=== PATIENT | female | born 1985 | race Caucasian/White ===

== ENCOUNTER 2018-12-03 11:24 | Emergency (ER) | payer OTHER ==
[2018-12-03] MEDS ORDERED: KETOROLAC TROMETHAMINE INJ/PF 30 MG/1 ML SDV IV ONE (11:57)
[2018-12-03] MEDS ORDERED: ONDANSETRON HCL INJ/PF 4 MG/2 ML SDV IV ONE ×2 (11:57→17:29)
--- NOTE | 2018-12-03 11:59 | ER Document Report ---
ED General - General Chief Complaint: Flank Pain Stated Complaint: URINARY PROBLEMS Time Seen by Provider: 12/03/18 11:50 TRAVEL OUTSIDE OF THE [place] IN LAST 30 DAYS: No - Related Data Allergies/Adverse Reactions: amoxicillin Allergy (Verified 12/03/18 11:42) gabapentin Allergy (Verified 12/03/18 11:42) meropenem Allergy (Verified 12/03/18 11:42) moxifloxacin Allergy (Verified 12/03/18 11:42) Penicillins Allergy (Verified 12/03/18 11:42) phenytoin Allergy (Verified 12/03/18 11:42) sulfamethoxazole [From Bactrim] Allergy (Verified 12/03/18 11:42) trimethoprim [From Bactrim] Allergy (Verified 12/03/18 11:42) Past Medical History - Social History Smoking Status: Never Smoker Frequency of alcohol use: Occasional Drug Abuse: None Family History: Reviewed & Not Pertinent Patient has suicidal ideation: No Patient has homicidal ideation: No Pulmonary Medical History: Reports: Hx Asthma Renal/ Medical History: Reports: Hx Kidney Stones. Denies: Hx Peritoneal Dialysis Past Surgical History: Reports: Hx Urinary Tract Surgery - stent in ureters - Immunizations Hx Diphtheria, Pertussis, Tetanus Vaccination: Yes Review of Systems - Review of Systems -: Yes All other systems reviewed and negative Physical Exam - Vital signs Vitals: Temp Pulse Resp BP Pulse Ox 98.0 F 104 H 18 122/81 96 12/03/18 11:36 12/03/18 11:36 12/03/18 11:36 12/03/18 11:36 12/03/18 11:36 Course - Vital Signs Vital signs: Temp Pulse Resp BP Pulse Ox 98.0 F 104 H 18 122/81 96 12/03/18 11:36 12/03/18 11:36 12/03/18 11:36 12/03/18 11:36 12/03/18 11:36 - Laboratory Result Diagrams: 12/03/18 12:23 12/03/18 12:23 Laboratory results interpreted by me: 12/03/18 12:23 Glucose 61 L
[2018-12-03] MEDS: NORMAL SALINE 1000 ML 1,000 ML IV PRN ×2 (12:52→14:47)
[2018-12-03 13:03] LABS: ABSOLUTE BASOPHILS # (AUTO) 0.1 10^3/uL (0.0-0.2); ABSOLUTE EOSINOPHILS # (AUTO) 0.2 10^3/uL (0.0-0.6); ABSOLUTE LYMPHOCYTES (AUTO) 1.9 10^3/uL (0.5-4.7); ABSOLUTE MONOCYTES (AUTO) 0.8 10^3/uL (0.1-1.4); ABSOLUTE NEUT (AUTO) 6.1 10^3/uL (1.7-8.2); BASOPHILS % (AUTO) 0.8 % (0-2); EOSINOPHILS % (AUTO) 2.5 % (0-6); HEMATOCRIT 38.6 % (36.0-47.0); HEMOGLOBIN 13.2 g/dL (12.0-15.5); LYMPHOCYTES % (AUTO) 21.4 % (13-45); MEAN CORPUSCULAR HEMOGLOBIN 29.8 pg (27.0-33.4); MEAN CORPUSCULAR HGB CONC 34.2 g/dL (32.0-36.0); MEAN CORPUSCULAR VOLUME 87 fl (80-97); MONOCYTES % (AUTO) 8.3 % (3-13); PLATELET COUNT 371 10^3/uL (150-450); RED BLOOD COUNT 4.43 10^6/uL (3.72-5.28); RED CELL DISTRIBUTION WIDTH 13.4 % (11.5-14.0); TOTAL CELLS COUNTED % (AUTO) 100 %; WHITE BLOOD COUNT 9.1 10^3/uL (4.0-10.5)
[2018-12-03 13:15] LABS: ALANINE AMINOTRANSFERASE 20 U/L (9-52); ALBUMIN 4.5 g/dL (3.5-5.0); ALKALINE PHOSPHATASE 55 U/L (38-126); ANION GAP 9 (5-19); ASPARTATE AMINO TRANSFERASE 25 U/L (14-36); BILIRUBIN,DIRECT 0.2 mg/dL (0.0-0.4); BILIRUBIN,TOTAL 0.3 mg/dL (0.2-1.3); BLOOD UREA NITROGEN 12 mg/dL (7-20); CALCIUM 9.8 mg/dL (8.4-10.2); CARBON DIOXIDE 26 mmol/L (22-30); CHLORIDE 106 mmol/L (98-107); LIPASE 89.7 U/L (23-300); POTASSIUM 4.3 mmol/L (3.6-5.0); SODIUM 140.7 mmol/L (137-145); TOTAL PROTEIN 7.8 g/dL (6.3-8.2)
[2018-12-03 13:18] LABS: GLUCOSE 61 mg/dL (75-110)
[2018-12-03] MEDS ORDERED: DEXTROSE 40% GEL 15 GM TUBE PO ONE (13:20)
--- NOTE | 2018-12-03 13:22 | RADIOLOGY REPORT (SQ) ---
EXAM DESCRIPTION: CT LTD RENAL STONE PROTOCOL ON COMPLETED DATE/TIME: 12/03/2018 1:09 pm REASON FOR STUDY: Rt flank pain COMPARISON: None. TECHNIQUE: CT scan of the abdomen and pelvis performed without intravenous or oral contrast. Images reviewed with lung, soft tissue, and bone windows. Reconstructed coronal and sagittal MPR images revi ewed. All images stored on PACS. All CT scanners at this facility use dose modulation, iterative reconstruction, and/or weight based d osing when appropriate to reduce radiation dose to as low as reasonably achievable (ALARA). [facility]: Dose Right [facility]: CareDose [facility]: Dose Right [facility]: Teradose 4D [facility]: [employer] RADIATION DOSE: CT Rad equipment meets quality standard of care and radiation dose reduction techniq ues were employed. CTDIvol: 8.6 mGy. DLP: 469 mGy-cm.mGy. LIMITATIONS: None. FINDINGS: LOWER CHEST: No significant findings. No nodules or infiltrates. NON-CONTRASTED LIVER, SPLEEN, ADRENALS: Evaluation limited by lack of IV contrast. No identified sign ificant masses. PANCREAS: No masses. No peripancreatic inflammatory changes. GALLBLADDER: No identified stones by CT criteria. No inflammatory changes to suggest cholecystitis. RIGHT KIDNEY AND URETER: No suspicious masses. Assessment limited by lack of IV contrast. No signif icant calcifications. No hydronephrosis or hydroureter. LEFT KIDNEY AND URETER: No suspicious masses. Assessment limited by lack of IV contrast. No signifi cant calcifications. No hydronephrosis or hydroureter. AORTA AND RETROPERITONEUM: No aneurysm. No retroperitoneal masses or adenopathy. BOWEL AND PERITONEAL CAVITY: No obvious masses or inflammatory changes. No free fluid. APPENDIX: Normal. PELVIS, BLADDER, AND ABDOMINAL WALL:Small amount of anti dependent gas within the urinary bladder. M ildly distended urinary bladder. No focal wall thickening. Unremarkable adnexum. Tampon within the vaginal canal. No free fluid or lymphadenopathy. Small fat containing inguinal hernias, right grea ter than left. BONES: No acute bony abnormality. No suspicious osseous lesions. T12 bone island. OTHER: No other significant finding. IMPRESSION: 1. No evidence of nephrolithiasis or obstructive uropathy. 2. Small amount of gas within the urinary bladder. Findings may related to recent instrumentation o r infection. Recommend correlation with urinalysis. 3. No additional evidence of acute intra-abdominal/pelvic process. COMMENT: Quality ID # [id number]: Final reports with documentation of one or more dose reduction techniques (e.g., Automated exposure control, adjustment of the mA and/or kV according to patient size, use of iterative reconstruction technique) TECHNICAL DOCUMENTATION: JOB ID: [id number] [employer]- All Rights Reserved Reading location - IP/workstation name: [email or web address] [facility] ANSONSarah
--- NOTE | 2018-12-03 13:31 | ER Document Report ---
ED Medical Screen (RME) - General Chief Complaint: Flank Pain Stated Complaint: URINARY PROBLEMS Time Seen by Provider: 12/03/18 11:50 TRAVEL OUTSIDE OF THE [place] IN LAST 30 DAYS: No - HPI Notes: 12/03/18 Patient is a 32-year-old female with a history of kidney stones who presents emergency department complaining of sudden onset right flank pain that began last evening that radiates around into her groin with associated nausea and dysuria. Patient states that she is having trouble voiding. Patient states that the symptoms are all similar to previous kidney stones. She otherwise has had decreased p.o. intake. She is having normal bowel movements. No other vaginal discharge, or odor. She is currently on her menstrual cycle. Denies any headache, fever, URI, sore throat, chest pain, palpitations, syncope, cough, shortness of breath, wheeze, dyspnea, vomiting/diarrhea, urinary retention, dy suria, hematuria, loss of control of bowel or bladder, numbness/tingling, saddle anesthesia, muscle paralysis/weakness, or rash. I have treated and performed a rapid initial assessment of this patient. A comprehensive ED assessment and evaluation of the patient, analysis of test results and completion of medical decision making process will be conducted by additional ED providers. PHYSICAL EXAMINATION: GENERAL: Well-appearing, well-nourished and in no acute distress. LUNGS: Breath sounds clear to auscultation bilaterally and equal. No wheezes rales or rhonchi. HEART: Regular rate and rhythm without murmurs, rubs, gallops. ABDOMEN: Soft, nontender (difficult to asses in PIT), nondistended abdomen. No guarding, no rebound. No masses appreciated. Normal bowel sounds present. + right CVA tenderness. Musculoskeletal: FROM to passive/active. Strength 5+/5. PSYCH: Normal mood, normal affect. SKIN: Warm, Dry, normal turgor, no rashes or lesions noted. - Related Data Allergies/Adverse Reactions: amoxicillin Allergy (Verified 12/03/18 11:42) gabapentin Allergy (Verified 12/03/18 11:42) meropenem Allergy (Verified 12/03/18 11:42) moxifloxacin Allergy (Verified 12/03/18 11:42) Penicillins Allergy (Verified 12/03/18 11:42) phenytoin Allergy (Verified 12/03/18 11:42) sulfamethoxazole [From Bactrim] Allergy (Verified 12/03/18 11:42) trimethoprim [From Bactrim] Allergy (Verified 12/03/18 11:42) Past Medical History - Social History Frequency of alcohol use: Occasional Drug Abuse: None Pulmonary Medical History: Reports: Hx Asthma Renal/ Medical History: Reports: Hx Kidney Stones. Denies: Hx Peritoneal Dialysis Past Surgical History: Reports: Hx Urinary Tract Surgery - stent in ureters - Immunizations Hx Diphtheria, Pertussis, Tetanus Vaccination: Yes Physical Exam - Vital signs Vitals: Temp Pulse Resp BP Pulse Ox 98.0 F 104 H 18 122/81 96 12/03/18 11:36 12/03/18 11:36 12/03/18 11:36 12/03/18 11:36 12/03/18 11:36 Course - Vital Signs Vital signs: Temp Pulse Resp BP Pulse Ox 98.0 F 104 H 18 122/81 96 12/03/18 11:36 12/03/18 11:36 12/03/18 11:36 12/03/18 11:36 12/03/18 11:36 - Laboratory Result Diagrams: 12/03/18 12:23 12/03/18 12:23 Laboratory results interpreted by me: 12/03/18 12:23 Glucose 61 L
[2018-12-03] MEDS ORDERED: METOCLOPRAMIDE HCL INJ/PF 10 MG/2 ML SDV IV ONE (15:21)
[2018-12-03] MEDS ORDERED: MORPHINE SULFATE 10 MG/ML INJ IV ONE ×2 (15:21→17:29)
[2018-12-03 16:34] LABS: APPEARANCE,URINE CLEAR; BILIRUBIN,URINE NEGATIVE (NEGATIVE); COLOR,URINE YELLOW; GLUCOSE, URINE NEGATIVE (NEGATIVE); KETONES,URINE NEGATIVE (NEGATIVE); LEUKOCYTE ESTERASE,URINE NEGATIVE (NEGATIVE); NITRITE,URINE NEGATIVE (NEGATIVE); PROTEIN,URINE NEGATIVE (NEGATIVE); UROBILINOGEN,URINE NEGATIVE mg/dL (<2.0)
[2018-12-03] MEDS ORDERED: NITROFURANTOIN MONOHYD/M-CRYST 100 MG CAPSULE PO ONE (17:32)
--- NOTE | 2018-12-03 17:35 | ER Document Report ---
ED GI/ - General Chief Complaint: Flank Pain Stated Complaint: URINARY PROBLEMS Time Seen by Provider: 12/03/18 11:50 Primary Care Provider: CRICKET KAN MD [NO LOCAL MD] - Follow up as needed Notes: Patient is a 32-year-old female with history of kidney stones presenting to the emergency department with complaints of sudden onset right flank pain that began last night. She reports the pain radiates around into her right lower quadrant and has nausea and urinary frequency and dysuria. She states that although she feels like she has to go to the bathroom frequently she has been unable to produce much urine. Patient reports she has not had a normal void in at least 12 hours. She denies any abnormal vaginal discharge. She is on her menstrual cycle at this time. Patient denies any fevers. TRAVEL OUTSIDE OF THE [place] IN LAST 30 DAYS: No - Related Data Allergies/Adverse Reactions: amoxicillin Allergy (Verified 12/03/18 11:42) gabapentin Allergy (Verified 12/03/18 11:42) meropenem Allergy (Verified 12/03/18 11:42) moxifloxacin Allergy (Verified 12/03/18 11:42) Penicillins Allergy (Verified 12/03/18 11:42) phenytoin Allergy (Verified 12/03/18 11:42) sulfamethoxazole [From Bactrim] Allergy (Verified 12/03/18 11:42) trimethoprim [From Bactrim] Allergy (Verified 12/03/18 11:42) Past Medical History - General Information source: Patient - Social History Smoking Status: Never Smoker Frequency of alcohol use: Occasional Drug Abuse: None Family History: Reviewed & Not Pertinent Patient has suicidal ideation: No Patient has homicidal ideation: No Pulmonary Medical History: Reports: Hx Asthma Renal/ Medical History: Reports: Hx Kidney Stones. Denies: Hx Peritoneal Dialysis Past Surgical History: Reports: Hx Urinary Tract Surgery - stent in ureters - Immunizations Hx Diphtheria, Pertussis, Tetanus Vaccination: Yes Review of Systems - Review of Systems Constitutional: No symptoms reported EENT: No symptoms reported Cardiovascular: No symptoms reported Respiratory: No symptoms reported Gastrointestinal: No symptoms reported Genitourinary: Dysuria, Frequency, Flank pain, Retention Female Genitourinary: No symptoms reported Musculoskeletal: No symptoms reported Skin: No symptoms reported Hematologic/Lymphatic: No symptoms reported Neurological/Psychological: No symptoms reported Physical Exam - Vital signs Vitals: Temp Pulse Resp BP Pulse Ox 98.0 F 104 H 18 122/81 96 12/03/18 11:36 12/03/18 11:36 12/03/18 11:36 12/03/18 11:36 12/03/18 11:36 - Notes Notes: PHYSICAL EXAMINATION: GENERAL: Well-appearing, well-nourished and in no acute distress. HEAD: Atraumatic, normocephalic. EYES: Pupils equal round and reactive to light, extraocular movements intact, conjunctiva are normal. ENT: Nares patent, oropharynx clear without exudates. Moist mucous membranes. NECK: Normal range of motion, supple without lymphadenopathy LUNGS: Breath sounds clear to auscultation bilaterally and equal. No wheezes r ales or rhonchi. HEART: Regular rate and rhythm without murmurs ABDOMEN: Soft, nontender, nondistended abdomen. No guarding, no rebound. No masses appreciated. Female : Right CVA tenderness Musculoskeletal: Normal range of motion, no pitting or edema. No cyanosis. NEUROLOGICAL: Cranial nerves grossly intact. Normal speech, normal gait. Normal sensory, motor exams PSYCH: Normal mood, normal affect. SKIN: Warm, Dry, normal turgor, no rashes or lesions noted. Course - Re-evaluation Re-evalutation: Labs as recorded. CBC, CMP and urinalysis are unremarkable. Patient was sent for a CT to evaluate for renal stone which was negative. A Cadet catheter was inserted during patient's emergency department stay as patient reported that she had not voided in 12 hours. Upon insertion of the Cadet catheter patient had a pproximately 4 to 500 mL's of clear yellow fluid. Patient was encouraged to follow-up with urology. She will be started on oral antibiotics due to the fact that she has dysuria pending a urine culture. I did offer to leave the Cadet catheter in place due to patient's acute urinary retention and have patient follow-up with the urologist however patient declined this. Patient states that she is traveling by airplane tomorrow and she does not want to keep the catheter in. I instructed patient that there is a possibility she will have acute urinary retention again and if this occurs to please return to the emergency department for placement of a catheter. Patient verbalized understanding and agreement with plan. - Vital Signs Vital signs: Temp Pulse Resp BP Pulse Ox 97.9 F 89 18 107/67 97 12/03/18 18:25 12/03/18 18:25 12/03/18 18:25 12/03/18 18:25 12/03/18 18:25 - Laboratory Result Diagrams: 12/03/18 12:23 12/03/18 12:23 Laboratory results interpreted by me: 12/03/18 12:23 Glucose 61 L Discharge - Discharge Clinical Impression: Flank pain, Cystitis Condition: Stable Disposition: HOME, SELF-CARE Additional Instructions: Please take antibiotics as prescribed. A urine culture is pending. Please use ibuprofen 600 mg every 6 hours for pain. Take all prescribed medications as directed. Please follow-up with a urologist. If you develop acute urinary retention, fever, persistent vomiting or any other symptom that is concerning to you please return to the emergency department at once. Prescriptions: Ondansetron [Zofran Odt 4 mg Tablet] 1 - 2 tab PO Q4HP PRN #15 tab.rapdis PRN Reason: Nitrofurantoin/Nitrofuran Mac [Macrobid 100 mg Capsule] 1 tab PO BID #14 capsule Forms: Return to Work Referrals: CRICKET KAN MD [NO LOCAL MD] - Follow up as needed
[2018-12-03] MEDS ORDERED: HYDROCODONE/ACETAMINOPHEN 5-325 MG (6 TAB/ER DISP) PO PRN (17:38)
[2018-12-03 18:31] VITALS: BP 107/67
== END 2018-12-03 18:30 | disposition home or self-care (01) ==
LOC: ER 11:24
DX: N30.90 Cystitis, unspecified without hematuria (principal); R10.9 Unspecified abdominal pain; Z87.442 Personal history of urinary calculi; Z88.0 Allergy status to penicillin; Z88.3 Allergy status to other anti-infective agents
CPT/HCPCS: 96376; 99284; 96361; 96374; 96375; 36415; 87086; 83690; 85025; 81025; 80053; 81001; 76380; J1885; J2765; J2270; J2405; J7030; J8499

== ENCOUNTER 2019-07-06 09:56 | Emergency (ER) | payer OTHER ==
[2019-07-06] MEDS ORDERED: ONDANSETRON HCL INJ/PF 4 MG/2 ML SDV IV ONE (10:42)
[2019-07-06] MEDS ORDERED: KETOROLAC TROMETHAMINE INJ/PF 30 MG/1 ML SDV IV ONE (10:42)
--- NOTE | 2019-07-06 10:44 | ER Document Report ---
ED Medical Screen (RME) - General Chief Complaint: Abdominal Pain Stated Complaint: RIGHT FLANK PAIN,VOMITING Time Seen by Provider: 07/06/19 10:32 Mode of Arrival: Ambulatory Information source: Patient Notes: This 33-year-old female with history of kidney stones presents to the emergency department with reports that she was on her way to school when she had sudden onset of pain to her right lower quad right pelvic area. Reports she is been vomiting. Patient reports the pain decreases when she holds pressure. Denies fever. Denies reports she has not been sexually active. She reports yesterday she was fine no problems. I have greeted and performed a rapid initial assessment of this patient. A comprehensive ED assessment and evaluation of the patient, analysis of test results and completion of the medical decision making process will be conducted by additional ED providers. Dictation of this chart was performed using voice recognition software; therefore, there may be some unintended grammatical errors. TRAVEL OUTSIDE OF THE [place] IN LAST 30 DAYS: No - Related Data Allergies/Adverse Reactions: amoxicillin Allergy (Verified 12/03/18 11:42) gabapentin Allergy (Verified 12/03/18 11:42) meropenem Allergy (Verified 12/03/18 11:42) moxifloxacin Allergy (Verified 12/03/18 11:42) Penicillins Allergy (Verified 12/03/18 11:42) phenytoin Allergy (Verified 12/03/18 11:42) sulfamethoxazole [From Bactrim] Allergy (Verified 12/03/18 11:42) trimethoprim [From Bactrim] Allergy (Verified 12/03/18 11:42) Past Medical History - Social History Frequency of alcohol use: None Drug Abuse: None Pulmonary Medical History: Reports: Hx Asthma Renal/ Medical History: Reports: Hx Kidney Stones. Denies: Hx Peritoneal Dialysis Past Surgical History: Reports: Hx Urinary Tract Surgery - stent in ureters - Immunizations Hx Diphtheria, Pertussis, Tetanus Vaccination: Yes Physical Exam - Vital signs Vitals: Temp Pulse BP Pulse Ox 97.6 F 115 H 101/63 95 07/06/19 10:12 07/06/19 10:12 07/06/19 10:12 07/06/19 10:12 Course - Vital Signs Vital signs: Temp Pulse Resp BP Pulse Ox 97.6 F 115 H 101/63 95 07/06/19 10:12 07/06/19 10:12 07/06/19 10:12 07/06/19 10:12
[2019-07-06 11:43] LABS: ABSOLUTE BASOPHILS # (AUTO) 0.1 10^3/uL (0.0-0.2); ABSOLUTE LYMPHOCYTES (AUTO) 1.4 10^3/uL (0.5-4.7); ABSOLUTE MONOCYTES (AUTO) 0.8 10^3/uL (0.1-1.4); ABSOLUTE NEUT (AUTO) 5.6 10^3/uL (1.7-8.2); EOSINOPHILS % (AUTO) 10.8 % (0-6); HEMATOCRIT 40.7 % (36.0-47.0); HEMOGLOBIN 13.4 g/dL (12.0-15.5); LYMPHOCYTES % (AUTO) 15.5 % (13-45); MEAN CORPUSCULAR HEMOGLOBIN 26.9 pg (27.0-33.4); MEAN CORPUSCULAR HGB CONC 33.1 g/dL (32.0-36.0); MEAN CORPUSCULAR VOLUME 81 fl (80-97); PLATELET COUNT 346 10^3/uL (150-450); RED CELL DISTRIBUTION WIDTH 14.4 % (11.5-14.0); SEGMENTED NEUTROPHILS % (AUTO) 63.7 % (42-78); TOTAL CELLS COUNTED % (AUTO) 100 %; WHITE BLOOD COUNT 8.8 10^3/uL (4.0-10.5)
[2019-07-06 11:54] LABS: ALBUMIN 4.5 g/dL (3.5-5.0); ALKALINE PHOSPHATASE 84 U/L (38-126); ANION GAP 11 (5-19); ASPARTATE AMINO TRANSFERASE 23 U/L (14-36); BILIRUBIN,DIRECT 0.3 mg/dL (0.0-0.4); BILIRUBIN,TOTAL 0.3 mg/dL (0.2-1.3); BLOOD UREA NITROGEN 11 mg/dL (7-20); CALCIUM 9.2 mg/dL (8.4-10.2); CARBON DIOXIDE 24 mmol/L (22-30); CHLORIDE 102 mmol/L (98-107); GLUCOSE 89 mg/dL (75-110); POTASSIUM 4.4 mmol/L (3.6-5.0)
[2019-07-06] MEDS ORDERED: MORPHINE SULFATE 10 MG/ML INJ IV ONE (12:06)
--- NOTE | 2019-07-06 12:11 | ER Document Report ---
ED General - General Chief Complaint: Abdominal Pain Stated Complaint: RIGHT FLANK PAIN,VOMITING Time Seen by Provider: 07/06/19 10:32 Mode of Arrival: Ambulatory TRAVEL OUTSIDE OF THE [place] IN LAST 30 DAYS: No - HPI Notes: Patient is a 33-year-old female with no significant past medical history aside from previous kidney stones who presents complaining of right lower quadrant a bdominal pain that is described as moderate to severe and started this morning with nausea and vomiting. Patient states that the pain does not radiate. Patient states that pressure in the area makes the pain worse. She has not had any vaginal discharge, odor, or bleeding. She has not noticed any changes in urination or bowel movements. Patient states that this does not mimic previous kidney stones. No surgical history to her abdomen. Denies . Denies any headache, fever, neck pain, URI, sore throat, chest pain, palpitations, syncope, cough, shortness of breath, wheeze, dyspnea, diarrhea, urinary retention, dysuria, hematuria, back pain, or rash. - Related Data Allergies/Adverse Reactions: amoxicillin Allergy (Verified 12/03/18 11:42) gabapentin Allergy (Verified 12/03/18 11:42) meropenem Allergy (Verified 12/03/18 11:42) moxifloxacin Allergy (Verified 12/03/18 11:42) Penicillins Allergy (Verified 12/03/18 11:42) phenytoin Allergy (Verified 12/03/18 11:42) sulfamethoxazole [From Bactrim] Allergy (Verified 12/03/18 11:42) trimethoprim [From Bactrim] Allergy (Verified 12/03/18 11:42) Past Medical History - General Information source: Patient - Social History Smoking Status: Unknown if Ever Smoked Frequency of alcohol use: None Drug Abuse: None Family History: Reviewed & Not Pertinent Patient has suicidal ideation: No Patient has homicidal ideation: No Pulmonary Medical History: Reports: Hx Asthma Renal/ Medical History: Reports: Hx Kidney Stones. Denies: Hx Peritoneal Dialysis Past Surgical History: Reports: Hx Urinary Tract Surgery - stent in ureters - Immunizations Hx Diphtheria, Pertussis, Tetanus Vaccination: Yes Review of Systems - Review of Systems -: Yes All other systems reviewed and negative Physical Exam - Vital signs Vitals: Temp Pulse BP Pulse Ox 97.6 F 115 H 101/63 95 07/06/19 10:12 07/06/19 10:12 07/06/19 10:12 07/06/19 10:12 - Notes Notes: PHYSICAL EXAMINATION: GENERAL: well-nourished and in no acute resp distress. Pt does appear u ncomfortable and holding her RLQ. HEAD: Atraumatic, normocephalic. EYES: Pupils equal round and reactive to light, extraocular movements intact, sclera anicteric, conjunctiva are normal. ENT: Nares patent and without discharge. oropharynx clear without exudates. No tonsilar hypertrophy or erythema. Moist mucous membranes. NECK: Normal range of motion, supple without lymphadenopathy LUNGS: Breath sounds clear to auscultation bilaterally and equal. No wheezes rales or rhonchi. HEART: Regular rate and rhythm without murmurs, rubs, gallops. ABDOMEN: Soft, nondistended abdomen. No guarding, no rebound. Normal bowel sounds present. No CVA tenderness bilaterally. + tenderness to [place] > Lower pelvic area. Musculoskeletal: FROM to passive/active. Strength 5+/5. Extremities: No cyanosis, clubbing, or edema b/l. Peripheral pulses 2+. Capillary refill less than 3 seconds. NEUROLOGICAL: Normal speech, normal gait. PSYCH: Normal mood, normal affect. SKIN: Warm, Dry, normal turgor, no rashes or lesions noted. Course - Re-evaluation Re-evalutation: 07/06/19 13:49 Patient is an afebrile, well-hydrated, 33-year-old female who presents to the ED with RLQ abd pain and noted ovarian cysts. Vitals are acceptable without any significant tachycardia, tachypnea, or hypoxia. PE is otherwise unremarkable. Labs acceptable. Patient is nontoxic-appearing is tolerating p.o. without any difficulties. See imaging including CT scan and TVUS. No other labs or imaging warranted at this time based on H&P. Low suspicion/risk for acute appendicitis, bowel obstruction, acute cholecystitis, acute cholangitis, perforated diverticulitis, incarcerated hernia, pancreatitis, perforated ulcer, peritonitis , sepsis, pelvic inflammatory disease, ectopic , tubo-ovarian abscess, ovarian torsion, or other systemic emergent condition at this time. Patient is aware that her condition can change from initial presentation and she needs to monitor symptoms closely and seek medical attention if any acute changes. I will send her home with prescription for motrin. Conservative measures otherwise for symptoms. Recheck with your PCM/OBGYN in 3-5 days. Return to the ED with any worsening/concerning symptoms otherwise as reviewed in discharge. Patient is in agreement. - Vital Signs Vital signs: Temp Pulse Resp BP Pulse Ox 97.6 F 115 H 101/63 95 07/06/19 10:12 07/06/19 10:12 07/06/19 10:12 07/06/19 10:12 - Laboratory Result Diagrams: 07/06/19 10:50 07/06/19 10:50 Laboratory results interpreted by me: 07/06/19 07/06/19 07/06/19 10:50 10:50 12:47 MCH 26.9 L RDW 14.4 H Eos % (Auto) 10.8 H Absolute Eos (auto) 1.0 H Sodium 136.7 L Urine Protein 30 H Urine Blood SMALL H Ur Leukocyte Esterase SMALL H Discharge - Discharge Clinical Impression: Right lower quadrant abdominal pain, Bilateral ovarian cysts Condition: Stable Disposition: HOME, SELF-CARE Instructions: Ovarian Cyst ([facility]), Abdominal Pain ([facility]) Additional Instructions: Maintain adequate fluid and food intake [place] diet ([employer] Bananas, rice, apples, toast, etc Zofran as needed tylenol/motrin if needed Monitor for any worsening symptoms Make sure you are staying hydrated enough to urinate and have normal BM's Recheck with your PCM in 3-5 days Schedule appointment with [facility]OL[facility] PROFESSIONAL for further evaluation and management Return to the ED with any worsening symptoms and/or development of fever, headache, chest pain, palpitations, syncope, shortness of breath, trouble b reathing, abdominal pain, n/v/d, blood in stool/urine, weakness, or other worsening symptoms that are concerning to you. Prescriptions: Ibuprofen [Motrin 800 mg Tablet] 800 mg PO Q8H PRN #15 tab PRN Reason: Ondansetron [Zofran Odt 4 mg Tablet] 1 - 2 tab PO Q4H PRN #15 tab.rapdis PRN Reason: For Nausea/Vomiting Referrals: LUCRETIA RICHARDS MD [ACTIVE STAFF] - Follow up as needed [facility] [Provider Group] - Follow up as needed
--- NOTE | 2019-07-06 12:35 | RADIOLOGY REPORT (SQ) ---
EXAM DESCRIPTION: U/S NON OB PEL TV W/DOPPLER COMPLETED DATE/TIME: 07/06/2019 12:03 pm REASON FOR STUDY: right side pelvic pain COMPARISON: None. TECHNIQUE: Dynamic and static grayscale images acquired of the pelvis via transvaginal approach and recorded on PACS. Additional selected color Doppler and spectral images recorded. LIMITATIONS: None. FINDINGS: UTERUS: Contour normal. No mass. ENDOMETRIAL STRIPE: No focal or generalized thickening. No masses. CERVIX: 2.2 cm. No nabothian cysts. RIGHT OVARY AND DOPPLER: Normal size. No worrisome masses. There is complex area measuring 15 mm jeffrey t is partially cystic and may comprise a cluster of small cysts. Normal arterial vascular flow witho ut evidence for torsion. LEFT OVARY AND DOPPLER: Normal size. No worrisome masses. There is a 2.3 cm cyst. There is a 16 mm complex area. Normal arterial vascular flow without evidence for torsion. FREE FLUID: There is some free fluid in the posterior cul-de-sac and in the right adnexa. OTHER: No other significant finding. MEASUREMENTS: UTERUS: 7.5 x 4.6 x 3.7 cm. ENDOMETRIAL STRIPE: 1.3 cm. RIGHT OVARY: 2.4 x 2.4 x 1.8 cm. LEFT OVARY: 4.4 x 2.8 x 2.1 cm. IMPRESSION: There are complex areas in each ovary that may represent involuting cysts. Recommend so nographic follow-up in 6 to 12 weeks. TECHNICAL DOCUMENTATION: JOB ID: [id number] [employer]- All Rights Reserved Reading location - IP/workstation name: [email or web address]
[2019-07-06 13:08] LABS: APPEARANCE,URINE SLIGHTLY-CLOUDY; BILIRUBIN,URINE NEGATIVE (NEGATIVE); COLOR,URINE YELLOW; GLUCOSE, URINE NEGATIVE (NEGATIVE); KETONES,URINE NEGATIVE (NEGATIVE); LEUKOCYTE ESTERASE,URINE SMALL (NEGATIVE); NITRITE,URINE NEGATIVE (NEGATIVE); PROTEIN,URINE 30 mg/dL (NEGATIVE); URINE SPECIFIC GRAVITY 1.025; UROBILINOGEN,URINE NEGATIVE mg/dL (<2.0)
--- NOTE | 2019-07-06 13:29 | RADIOLOGY REPORT (SQ) ---
EXAM DESCRIPTION: CT ABD/PELVIS WITH IV ONLY COMPLETED DATE/TIME: 07/06/2019 12:59 pm REASON FOR STUDY: RLQ pain COMPARISON: None. TECHNIQUE: CT scan of the abdomen and pelvis performed using helical scanning technique with dynamic intravenous contrast injection. No oral contrast. Images reviewed with lung, soft tissue, and bone windows. Reconstructed coronal and sagittal MPR images reviewed. Delayed images for evaluation of the urinary system also acquired. All images stored on PACS. All CT scanners at this facility use dose modulation, iterative reconstruction, and/or weight based d osing when appropriate to reduce radiation dose to as low as reasonably achievable (ALARA). [facility]: Dose Right [facility]: CareDose [facility]: Dose Right [facility]: Teradose 4D [facility]: Quartzy CONTRAST TYPE AND DOSE: contrast/concentration: Isovue 350.00 mg/ml; Total Contrast Delivered: 74.0 ml; Total Saline Delivered: 27.9 ml RENAL FUNCTION: BUN 11 creatinine 0.78 RADIATION DOSE: CT Rad equipment meets quality standard of care and radiation dose reduction techniq ues were employed. CTDIvol: 5.8 - 7.8 mGy. DLP: 1200 mGy-cm.. LIMITATIONS: None. FINDINGS: LOWER CHEST: No significant findings. No nodules or infiltrates. LIVER: There is a small low-density lesion in the right lobe of the liver on image 20, possible heman gioma. SPLEEN: Normal size. No focal lesions. PANCREAS: No masses. No significant calcifications. No adjacent inflammation or peripancreatic fluid collections. Pancreatic duct not dilated. GALLBLADDER: No identified stones by CT criteria. No inflammatory changes to suggest cholecystitis. ADRENAL GLANDS: No significant masses or asymmetry. RIGHT KIDNEY AND URETER: No solid masses. No significant calcifications. No hydronephrosis or hyd roureter. LEFT KIDNEY AND URETER: No solid masses. No significant calcifications. No hydronephrosis or hydr oureter. AORTA AND VESSELS: No aneurysm. No dissection. Renal arteries, SMA, celiac without stenosis. RETROPERITONEUM: No retroperitoneal adenopathy, hemorrhage or masses. BOWEL AND PERITONEAL CAVITY: No masses or inflammatory changes. No free fluid or peritoneal masses. APPENDIX: Normal. PELVIS: Small amount of free fluid in the pelvis. 22 mm left ovarian cyst. 12 mm right ovarian cyst . ABDOMINAL WALL: No masses. No hernias. BONES: No significant or acute findings. OTHER: No other significant finding. IMPRESSION: 1. Small ovarian cysts are almost certainly benign. No additional imaging is required for these. 2. Small amount of free fluid in the pelvis. 3. Likely small hemangioma in the liver. TECHNICAL DOCUMENTATION: JOB ID: [id number] Quality ID # [id number]: Final reports with documentation of one or more dose reduction techniques (e.g., Au tomated exposure control, adjustment of the mA and/or kV according to patient size, use of iterative reconstruction technique) 2010 [employer]- All Rights Reserved Reading location - IP/workstation name: [email or web address]
[2019-07-06 14:09] VITALS: BP 95/55
== END 2019-07-06 14:24 | disposition home or self-care (01) ==
LOC: ER 09:56
DX: N83.202 Unspecified ovarian cyst, left side (principal); N83.201 Unspecified ovarian cyst, right side; R10.31 Right lower quadrant pain; R11.10 Vomiting, unspecified; Z87.442 Personal history of urinary calculi; Z88.0 Allergy status to penicillin; Z88.3 Allergy status to other anti-infective agents
CPT/HCPCS: 36415; 84703; 85025; 80053; 81001; 76830; 93976; 74177; J1885; J2270; J2405; 87086; 96374; 99284

== ENCOUNTER 2019-10-05 17:32 | Emergency (ER) | payer OTHER ==
[2019-10-05] MEDS ORDERED: KETOROLAC TROMETHAMINE 60 MG/2 ML SDV IM ONE (18:34)
--- NOTE | 2019-10-05 18:39 | ER Document Report ---
ED Medical Screen (RME) - General Chief Complaint: Flank Pain Stated Complaint: RIGHT FLANK PAIN,NAUSEA Time Seen by Provider: 10/05/19 18:33 Mode of Arrival: Ambulatory Information source: Patient Notes: pt presents with right flank pain that started today at 1330. Has history of pyelonephritis and kidney stones,.Reports hx of kidney stent placement. Denies pain with void, denies f/n/V. Went to urgent care and they sent her here. Denies . I have greeted and performed a rapid initial assessment of this patient. A comprehensive ED assessment and evaluation of the patient, analysis of test results and completion of the medical decision making process will be conducted by additional ED providers. TRAVEL OUTSIDE OF THE [place] IN LAST 30 DAYS: No - Related Data Allergies/Adverse Reactions: amoxicillin Allergy (Verified 12/03/18 11:42) gabapentin Allergy (Verified 12/03/18 11:42) meropenem Allergy (Verified 12/03/18 11:42) moxifloxacin Allergy (Verified 12/03/18 11:42) Penicillins Allergy (Verified 12/03/18 11:42) phenytoin Allergy (Verified 12/03/18 11:42) sulfamethoxazole [From Bactrim] Allergy (Verified 12/03/18 11:42) trimethoprim [From Bactrim] Allergy (Verified 12/03/18 11:42) Past Medical History Pulmonary Medical History: Reports: Hx Asthma Renal/ Medical History: Reports: Hx Kidney Stones. Denies: Hx Peritoneal Dialysis Past Surgical History: Reports: Hx Urinary Tract Surgery - stent in ureters - Immunizations Hx Diphtheria, Pertussis, Tetanus Vaccination: Yes Physical Exam - Vital signs Vitals: Temp Pulse Resp BP Pulse Ox 97.9 F 109 H 20 118/75 99 10/05/19 17:58 10/05/19 17:58 10/05/19 17:58 10/05/19 17:58 10/05/19 17:58 Course - Vital Signs Vital signs: Temp Pulse Resp BP Pulse Ox 97.9 F 109 H 20 118/75 99 10/05/19 17:58 10/05/19 17:58 10/05/19 17:58 10/05/19 17:58 10/05/19 17:58
[2019-10-05 19:33] LABS: ABSOLUTE BASOPHILS # (AUTO) 0.1 10^3/uL (0.0-0.2); ABSOLUTE EOSINOPHILS # (AUTO) 1.9 10^3/uL (0.0-0.6); ABSOLUTE LYMPHOCYTES (AUTO) 2.4 10^3/uL (0.5-4.7); ABSOLUTE MONOCYTES (AUTO) 0.8 10^3/uL (0.1-1.4); ABSOLUTE NEUT (AUTO) 3.9 10^3/uL (1.7-8.2); BASOPHILS % (AUTO) 0.8 % (0-2); EOSINOPHILS % (AUTO) 21.2 % (0-6); HEMOGLOBIN 13.7 g/dL (12.0-15.5); LYMPHOCYTES % (AUTO) 26.1 % (13-45); MEAN CORPUSCULAR HGB CONC 32.7 g/dL (32.0-36.0); MEAN CORPUSCULAR VOLUME 82 fl (80-97); MONOCYTES % (AUTO) 8.5 % (3-13); PLATELET COUNT 386 10^3/uL (150-450); RED BLOOD COUNT 5.09 10^6/uL (3.72-5.28); RED CELL DISTRIBUTION WIDTH 14.5 % (11.5-14.0); SEGMENTED NEUTROPHILS % (AUTO) 43.4 % (42-78); TOTAL CELLS COUNTED % (AUTO) 100 %; WHITE BLOOD COUNT 9.1 10^3/uL (4.0-10.5)
[2019-10-05 19:39] LABS: APPEARANCE,URINE CLEAR; BILIRUBIN,URINE NEGATIVE (NEGATIVE); COLOR,URINE YELLOW; GLUCOSE, URINE NEGATIVE (NEGATIVE); KETONES,URINE NEGATIVE (NEGATIVE); LEUKOCYTE ESTERASE,URINE TRACE (NEGATIVE); NITRITE,URINE NEGATIVE (NEGATIVE); PROTEIN,URINE NEGATIVE (NEGATIVE); URINE SPECIFIC GRAVITY 1.018; UROBILINOGEN,URINE NEGATIVE mg/dL (<2.0)
--- NOTE | 2019-10-05 19:39 | RADIOLOGY REPORT (SQ) ---
EXAM DESCRIPTION: U/S RETROPERITON LTD COMPLETED DATE/TIME: 10/05/2019 7:23 pm REASON FOR STUDY: flank pain hx kidney stones and pyelo COMPARISON: None. TECHNIQUE: Dynamic and static grayscale images acquired of the kidneys and bladder and recorded on P ACS. Additional selected color Doppler and spectral images recorded. LIMITATIONS: None. FINDINGS: RIGHT KIDNEY: Normal size, 9.5 cm. Normal echogenicity. No solid or suspicious masses . No hydronephrosis. Echogenic foci are seen in the middle calices. LEFT KIDNEY: Normal size, 9.9 cm. Normal echogenicity. No solid or suspicious masses. No hydro nephrosis. No calcifications. BLADDER: Bladder was empty. OTHER FINDINGS: No other significant finding. IMPRESSION: There appear to be middle calyceal calculi in the right kidney. There is no hydronephro sis on either side. TECHNICAL DOCUMENTATION: JOB ID: [id number] 2010 [employer]- All Rights Reserved Reading location - IP/workstation name: [email or web address]
[2019-10-05 20:03] VITALS: BP 120/78
[2019-10-05 20:03] LABS: ALBUMIN 4.4 g/dL (3.5-5.0); ALKALINE PHOSPHATASE 72 U/L (38-126); ANION GAP 10 (5-19); ASPARTATE AMINO TRANSFERASE 23 U/L (14-36); BILIRUBIN,TOTAL 0.2 mg/dL (0.2-1.3); BLOOD UREA NITROGEN 12 mg/dL (7-20); CALCIUM 9.4 mg/dL (8.4-10.2); CARBON DIOXIDE 26 mmol/L (22-30); CHLORIDE 102 mmol/L (98-107); GLUCOSE 77 mg/dL (75-110); TOTAL PROTEIN 7.5 g/dL (6.3-8.2)
[2019-10-05] MEDS ORDERED: ONDANSETRON HCL INJ/PF 4 MG/2 ML SDV IV ONE (21:06)
[2019-10-05] MEDS ORDERED: MORPHINE SULFATE 10 MG/ML INJ IV ONE ×2 (21:06→22:40)
[2019-10-05] MEDS ORDERED: NORMAL SALINE 1000 ML 1,000 ML IV ONE (21:06)
--- NOTE | 2019-10-05 21:07 | ER Document Report ---
ED GI/ - General Chief Complaint: Flank Pain Stated Complaint: RIGHT FLANK PAIN,NAUSEA Time Seen by Provider: 10/05/19 18:33 Mode of Arrival: Ambulatory Notes: CHIEF COMPLAINT: Right flank pain today HPI: 33-year-old female with kidney stone history presenting for sudden onset of right flank pain with nausea today. One episode of vomiting. No fever. Pain began in the right posterior flank that radiates around into the right lower quadrant. Patient states that she does not recall the name of her urologist cu rrently but has had a stent in the past ROS: See HPI - all other systems were reviewed and are otherwise negative Constitutional: no fever Eyes: no drainage, no blurred vision ENT: no runny nose, no sore throat Cardiovascular: no chest pain Resp: no SOB, no cough GI: + vomiting, no diarrhea, + Abdominal pain : no dysuria Integumentary: no rash Allergy: no hives Musculoskeletal: no extremity pain or swelling Neurological: no numbness/tingling, no weakness MEDICATIONS: I agree with the patient medications as charted by the RN. ALLERGIES: I agree with the allergies as charted by the RN. PAST MEDICAL HISTORY/PAST SURGICAL HISTORY: Reviewed and agree as charted by RN. SOCIAL HISTORY: Reviewed and agree as charted by RN. FAMILY HISTORY: No significant familial comorbid conditions directly related to patient complaint EXAM: Reviewed vital signs as charted by RN. CONSTITUTIONAL: Alert and oriented and responds appropriately to questions. Well-appearing; well-nourished, moderate distress secondary to discomfort HEAD: Normocephalic; atraumatic EYES: PERRL; Conjunctivae clear, sclerae non-icteric ENT: normal nose; no rhinorrhea; moist mucous membranes; pharynx without lesions noted, no uvula edema or deviation, no tonsillar hypertrophy, phonation normal NECK: Supple without meningismus; non-tender; no cervical lymphadenopathy, no masses CARD: RRR; no murmurs, no clicks, no rubs, no gallops; symmetric distal pulses RESP: Normal chest excursion without splinting or tachypnea; breath sounds clear and equal bilaterally; no wheezes, no rhonchi, no rales, pulse oximetry 100% on room air not hypoxic ABD/GI: Normal bowel sounds; non-distended; soft, mild tenderness to the right flank on palpation, no rebound, no guarding; no palpable organomegaly or masses. BACK: The back appears normal and is non-tender to palpation, there is no CVA tenderness EXT: Normal ROM in all joints; non-tender to palpation; no cyanosis, no effusions, no edema SKIN: Normal color for age and race; warm; dry; good turgor; no acute lesions noted NEURO: Moves all extremities equally; Motor and sensory function intact PSYCH: The patient's mood and manner are appropriate. Grooming and personal hygiene are appropriate. MDM: 33-year-old female with a kidney stone history presenting with right flank pain onset today. There is an initial delay in my evaluation of the patient as she had been taken off "to be seen status" and we were not aware that the patient still needed evaluation. I did go immediately and evaluate the patient once I was aware of this. Initial lab work does not show acute emergent abnormalities through the triage process. Renal ultrasound shows possible calcification suggesting kidney stones but no hydronephrosis but patient is still moderately uncomfortable and has had have a stent previously for prior kidney stones for obstruction reason so will obtain CT imaging to look for an obstructive stone. Patient had a CT in June 2019 that did not show any marvin cifications in the kidneys TRAVEL OUTSIDE OF THE [place] IN LAST 30 DAYS: No - Related Data Allergies/Adverse Reactions: amoxicillin Allergy (Verified 12/03/18 11:42) gabapentin Allergy (Verified 12/03/18 11:42) meropenem Allergy (Verified 12/03/18 11:42) moxifloxacin Allergy (Verified 12/03/18 11:42) Penicillins Allergy (Verified 12/03/18 11:42) phenytoin Allergy (Verified 12/03/18 11:42) sulfamethoxazole [From Bactrim] Allergy (Verified 12/03/18 11:42) trimethoprim [From Bactrim] Allergy (Verified 12/03/18 11:42) Home Medications: Zyrtes. Buspirone. Cymbalta. Adderall Past Medical History - General Information source: Patient - Social History Smoking Status: Never Smoker Frequency of alcohol use: Occasional Drug Abuse: None Family History: Reviewed & Not Pertinent Patient has suicidal ideation: No Patient has homicidal ideation: No Pulmonary Medical History: Reports: Hx Asthma Renal/ Medical History: Reports: Hx Kidney Stones. Denies: Hx Peritoneal Dialysis Past Surgical History: Reports: Hx Urinary Tract Surgery - stent in ureters - Immunizations Hx Diphtheria, Pertussis, Tetanus Vaccination: Yes Physical Exam - Vital signs Vitals: Temp Pulse Resp BP Pulse Ox 97.9 F 109 H 20 118/75 99 10/05/19 17:58 10/05/19 17:58 10/05/19 17:58 10/05/19 17:58 10/05/19 17:58 Course - Re-evaluation Re-evalutation: 10/05/19 22:37 I discussed evaluation at length with the patient and her mother. Patient CT imaging does not suggest a obstructing stone, there is no hydronephrosis. This was also visualized on ultrasound. She does have several intrarenal calculi. Can we rule out a small nonobstructing stone not 100% and I did communicate this at length with the patient and her mother. The patient's mother is frustrated because they have been here for several hours without a definitive answer for why they are here. We did review all of the CT ultrasound and lab findings. I have low suspicion for pyelonephritis. Patient had sudden onset of pain today suggesting passage of a kidney stone. I will treat patient's pain and refer her back to Dr. Lu her urologist. We did discuss other possibilities such as pelvic infection, torsion, appendicitis or other intra-abdominal infections and patient does not believe that she has any of these. She states this feels like the last time she had a kidney stone. I did give patient strict return instructions. She is again asking for a dose of IV pain medication prior to discharge. - Vital Signs Vital signs: Temp Pulse Resp BP Pulse Ox 98.8 F 70 20 120/78 100 10/05/19 20:03 10/05/19 20:03 10/05/19 20:03 10/05/19 20:03 10/05/19 20:03 - Laboratory Result Diagrams: 10/05/19 19:02 10/05/19 19:02 Laboratory results interpreted by me: 10/05/19 10/05/19 19:02 19:02 RDW 14.5 H Eos % (Auto) 21.2 H Absolute Eos (auto) 1.9 H Urine Blood SMALL H Ur Leukocyte Esterase TRACE H Discharge - Discharge Clinical Impression: Acute right flank pain Condition: Stable Disposition: HOME, SELF-CARE Additional Instructions: Take the medications as prescribed. Follow-up with Dr. Lu tomorrow for reevaluation of symptoms. Your lab work including urinalysis did not show evidence of infection or abnormalities. Both your ultrasound and your CT imaging did not show acute emergent abnormalities. There was not a definitive suggestion of a passing stone at this time. There was no fluid around the kidney on either CT imaging or ultrasound. If you have worsening pain or pain that progresses into the right lower quadrant or right pelvis please return to the emergency department for reevaluation Prescriptions: Tamsulosin HCl [Flomax 0.4 mg Cap.sr] 0.4 mg PO DAILY #7 cap.sr.24h Hydrocodone/Acetaminophen [Morenci 5-325 mg Tablet] 1 tab PO Q4 PRN #15 tablet PRN Reason: Ondansetron [Zofran Odt 4 mg Tablet] 1 - 2 tab PO Q4H PRN #15 tab.rapdis PRN Reason: For Nausea/Vomiting
--- NOTE | 2019-10-05 22:07 | RADIOLOGY REPORT (SQ) ---
EXAM DESCRIPTION: CT ABDOMEN PELVIS WITHOUT IV CONTRAST COMPLETED DATE/TME: 10/05/2019 21:06 CLINICAL HISTORY: 33 years, Female, right flank pain hx kidney stones COMPARISON: July 06, 2019 TECHNIQUE: Images stored on PACS. All CT scanners at this facility use dose modulation, iterative reconstruction, and/or weight based dosing when appropriate to reduce radiation dose to as low as reasonably achievable (ALARA). [facility]: Dose Right [facility]: CareDose [facility]: Dose Right [facility]: Teradose 4D [facility]: [employer] LIMITATIONS: None. FINDINGS: Lung bases are grossly clear. The heart is of normal size. No pleural or pericardial effusion. The liver is homogeneous. The gallbladder is nondistended. The pancreas spleen and adrenals are normal. Punctate nonobstructing calculi of the kidneys bilaterally. No obstructive uropathy hydronephrosis or hydroureter. No free air. No free fluid. The bowel is nonobstructed. It is unopacified with oral contrast. Visualized pelvic contents are unremarkable. The visualized bones are unremarkable IMPRESSION: No acute intra-abdominal process identified. Nonobstructing nephrolithiasis bilaterally. No obstructive uropathy hydronephrosis or hydroureter TECHNICAL DOCUMENTATION: Quality ID # 436: Final reports with documentation of one or more dose reduction techniques (e.g., Automated exposure control, adjustment of the mA and/or kV according to patient size, use of iterative reconstruction technique) copyright 2011 [employer]- All Rights Reserved
[2019-10-05] MEDS ORDERED: HYDROCODONE/ACETAMINOPHEN 5-325 MG (6 TAB/ER DISP) PO PRN (22:40)
== END 2019-10-06 00:30 | disposition home or self-care (01) ==
LOC: ER 17:32
DX: N20.0 Calculus of kidney (principal); R10.9 Unspecified abdominal pain; R10.819 Abdominal tenderness, unspecified site; R11.0 Nausea; R11.10 Vomiting, unspecified; J45.909 Unspecified asthma, uncomplicated; Z79.899 Other long term (current) drug therapy; Z88.0 Allergy status to penicillin; Z88.6 Allergy status to analgesic agent; Z88.1 Allergy status to other antibiotic agents; Z88.8 Allergy status to other drugs, medicaments and biological substances
CPT/HCPCS: 96376; 99284; 96372; 96374; 96375; 36415; 85025; 81025; 80053; 81001; 76775; 74176; J1885; J2270; J2405; J7030; 96361